=== PATIENT | male | born 1990 | race Caucasian/White ===

== ENCOUNTER 2016-09-06 10:18 | Emergency (ER) | payer BC ==
--- NOTE | 2016-09-06 11:06 | ED ---
Upper Extremity HPI - General Chief Complaint: Extremity Injury, Upper Stated Complaint: left hand pain Time Seen by Provider: 09/06/16 10:37 Source: patient, RN notes reviewed Mode of arrival: ambulatory Limitations: no limitations - History of Present Illness Initial Comments: 26-year-old male presents to the emergency Department chief complaint of left hand pain. Patient states he will running a chest x-ray the fifth and fourth finger on his left hand. Patient states there is no falls traumas or injuries to the hand. Patient does admit to history of arthritis in the past but no other health history. Patient states the shooting tender pains without that he should be reevaluated. Patient states is not currently having any other symptoms at this time. Patient denies any recent fever, chills, shortness of breath, chest pain, back pain, abdominal pain, nausea vomiting, numbness or tingling, dysuria or hematuria, constipation or diarrhea, headaches or visual changes, or any other current symptoms. - Related Data Home Medications Medication Instructions Recorded Confirmed Ibuprofen [Advil] 400 mg PO Q6H PRN 09/06/16 09/06/16 Previous Rx's Medication Instructions Recorded Ibuprofen [Motrin] 800 mg PO Q6HR PRN #20 tab 09/06/16 Allergies Allergy/AdvReac Type Severity Reaction Status Date / Time No Known Allergies Allergy Verified 09/06/16 10:43 Review of Systems ROS Statement: Those systems with pertinent positive or pertinent negative responses have been documented in the HPI. ROS Other: All systems not noted in ROS Statement are negative. Past Medical History Past Medical History: Osteoarthritis (OA) History of Any Multi-Drug Resistant Organisms: None Reported Past Surgical History: Orthopedic Surgery, Tonsillectomy Additional Past Surgical History / Comment(s): right knee Past Psychological History: No Psychological Hx Reported Smoking Status: Never smoker Past Alcohol Use History: Occasional Past Drug Use History: None Reported General Exam - General Exam Comments Initial Comments: General: The patient is awake and alert, in no distress, and does not appear acutely ill. Neck: The neck is supple, there is no tenderness. Cardiovascular: There is a regular rate and rhythm. No murmur, rub or gallop is appreciated. Respiratory: Lungs are clear to auscultation, respirations are non-labored, breath sounds are equal. No wheezes, stridor, rales, or rhonchi. Musculoskeletal: Sensation intact with 2+ pulses. The left upper extremity. Full range motion of left wrist and left hand. Patient does have some tenderness palpation along the fifth and fourth metacarpal. No deformity noted. No erythema noted. Neurological: CN II-XII intact, There are no obvious motor or sensory deficits. Coordination appears grossly intact. Speech is normal. Skin: Skin is warm and dry and no rashes or lesions are noted. Psychiatric: Normal mood and affect. Limitations: no limitations Course Vital Signs 09/06/16 10:23 Temperature 98.6 F Pulse Rate 89 Respiratory 18 Rate Blood Pressure 160/94 O2 Sat by Pulse 98 Oximetry Medical Decision Making - Medical Decision Making 26-year-old male presents to the emergency department chief complaint of left hand pain. This time the patient's x-ray was read that does not show any acute process. Distally discussed other etiologies for the patient's pain. We will start him on prescription strength Motrin to help with the pain we did discuss ice the pain. We discussed return parameters and all the patient's questions. He stated he understood all questions have been answered. He will be discharged home. - Radiology Data Radiology results: report reviewed, image reviewed Disposition Clinical Impression: Left hand pain Disposition: HOME SELF-CARE Condition: Stable Instructions: Hand Sprain (ED) Additional Instructions: Please use medication as discussed. Please follow up with family doctor if symptoms have not improved over the next two days. Please return to the emergency room if your symptoms increase or worsen or for any other concerns. Prescriptions: Ibuprofen [Motrin] 800 mg PO Q6HR PRN #20 tab PRN Reason: Pain Referrals: Fernando Brothers MD [Primary Care Provider] - 1-2 days Gavino Masters MD [STAFF PHYSICIAN] - 1-2 days Time of Disposition: 11:27
--- NOTE | 2016-09-06 11:09 | XR ---
EXAMINATION TYPE: XR hand complete LT DATE OF EXAM: 09/06/2016 10:54 AM CLINICAL HISTORY: pain TECHNIQUE: Frontal, lateral and oblique images of the left hand are obtained. COMPARISON: None. FINDINGS: There is no acute fracture/dislocation evident. The joint spaces appear within normal limi ts. The overlying soft tissue appears unremarkable. IMPRESSION: There is no acute fracture or dislocation. ICD 10 NO FRACTURE, INITIAL EVALUATION
[2016-09-06 11:51] VITALS: BP 148/82; PULSE 78; RESP 17; TEMP 98.7
== END 2016-09-06 11:51 | disposition home or self-care (01) ==
LOC: EC 10:18
DX: S63.92XA Sprain of unspecified part of left wrist and hand, initial encounter (principal); M19.90 Unspecified osteoarthritis, unspecified site; X58.XXXA Exposure to other specified factors, initial encounter
CPT/HCPCS: 99283

== ENCOUNTER → 2016-12-28 | Outpatient (CLI) | payer BC ==
--- NOTE | 2016-12-28 12:10 | XR ---
EXAMINATION TYPE: XR chest 2V DATE OF EXAM ORDERED: 12/28/2016 HISTORY: R05 Cough. REFERENCE: None. FINDINGS: The lungs are clear. Pleural spaces are clear. Heart size is normal. IMPRESSION: NORMAL CHEST.
== END | disposition home or self-care (01) ==
LOC: RADXRMAIN 10:53
PROVIDERS: ATTEND Family Medicine
DX: R05 Cough (principal)
CPT/HCPCS: 71020

== ENCOUNTER → 2017-01-26 | Outpatient (CLI) | payer BC ==
[~2017-01-26] MED LIST: REGADENOSON 0.4 MG/5 ML SYRINGE IV ONE
--- NOTE | 2017-01-26 11:05 | NM ---
EXAMINATION TYPE: NM stress Lexiscan cardiolite DATE OF EXAM: 01/26/2017 COMPARISON: NONE HISTORY: Chronic dyspnea. TECHNIQUE: After the intravenous administration of 10.23 mCi Tc 99m Sestamibi - Cardiolite resting S PECT images acquired 45 minutes post injection. The patient received 0.4mg Lexiscan, 26.8 mCi Tc 99m Sestamibi - Stress images obtained [address] injection FINDINGS: There is good uptake of radiopharmaceutical by the left ventricle. There is no fixed defect . There is no convincing inducible ischemic change. Wall motion appears normal and ejection fraction is normal at 57%. IMPRESSION: NO CONVINCING EVIDENCE FOR INDUCIBLE ISCHEMIC CHANGE AT THIS.
--- NOTE | 2017-01-26 15:15 | EST ---
DATE OF SERVICE: 01/26/17 TYPE OF REPORT: Lexiscan Stress Test INDICATIONS: Hypertension. BASELINE HEART RATE: 58 BASELINE BLOOD PRESSURE: 137/88 MAXIMUM HEART RATE: 103 MAXIMUM BLOOD PRESSURE: 181/83 85% MPHR 164 100% MPHR 193 Lexiscan nuclear study was performed. Peak heart rate of 79 was achieved. Maximum blood pressure of 181/53 mm of mercury was noted. Resting EKG shows normal sinus rhythm with normal KS interval and QRS duration and normal ST T waves. No ST segment depression suggestive of ischemia is noted. The results of the nuclear study will follow. [facility]
== END | disposition home or self-care (01) ==
LOC: RADNMMAIN 08:14
PROVIDERS: ATTEND Family Medicine
DX: R06.09 Other forms of dyspnea (principal)
CPT/HCPCS: 93017; 78452; A9500; J2785

== ENCOUNTER 2017-02-01 11:24 | Observation (INO) | payer BC ==
[2017-02-01] MEDS ORDERED: PANTOPRAZOLE 40 MG TABLET PO PRN (13:41)
[2017-02-01] MEDS ORDERED: BECLOMETHASONE DIP 80 MCG/PUFF INHALER INHALATION PRN (13:41)
--- NOTE | 2017-02-01 14:15 | XR ---
EXAMINATION TYPE: XR chest 2V DATE OF EXAM: 02/01/2017 COMPARISON: Prior chest x-ray 12/28/2016 HISTORY: Asthma, hypertension TECHNIQUE: Frontal and lateral views of the chest are obtained. FINDINGS: There is no focal air space opacity, pleural effusion, or pneumothorax seen. The cardiac silhouette size is within normal limits. The osseous structures are intact. IMPRESSION: No acute cardiopulmonary process.
[2017-02-01 14:44] LABS: Basophils % (A) 1 %; CH 31.4; CHCM 35.3; Eosinophils # (A) 0.1 k/uL (0-0.7); Eosinophils % (A) 1 %; HDW 2.75; HGB 15.3 gm/dL (13.0-17.5); Luc # (Auto) 0.11; Luc % (Auto) 2; Lymphocytes # (A) 2.5 k/uL (1.0-4.8); Lymphocytes % (A) 33 %; MCHC 34.8 g/dL (31.0-37.0); MCV 89.2 fL (80.0-100.0); Mean Platelet Volume 6.8; Monocytes # (A) 0.5 k/uL (0-1.0); Monocytes % (A) 7 %; Neutrophils # (A) 4.3 k/uL (1.3-7.7); Neutrophils % (A) 57 %; RBC 4.93 m/uL (4.30-5.90); RDW 11.9 % (11.5-15.5); WBC 7.5 k/uL (3.8-10.6); WBC (Perox) 7.52
[2017-02-01 14:57] LABS: ALT 47 U/L (21-72); AST 22 U/L (17-59); Alkaline Phosphatase 46 U/L (38-126); Anion Gap 9 mmol/L; Blood Urea Nitrogen 13 mg/dL (9-20); Calcium 9.6 mg/dL (8.4-10.2); Carbon Dioxide 29 mmol/L (22-30); Chloride 102 mmol/L (98-107); Glucose 109 mg/dL (74-99); Non-African American GFR(MDRD) >60 (>60 ml/min/1.73 sqM); Potassium 3.8 mmol/L (3.5-5.1); Sodium 140 mmol/L (137-145); Total Bilirubin 0.6 mg/dL (0.2-1.3); Total Protein 6.9 g/dL (6.3-8.2)
[2017-02-01] MEDS: SODIUM CHLORIDE 0.9% 1,000 ML IV SCH (15:25)
[2017-02-01] MEDS ORDERED: ACETAMINOPHEN TAB 500 MG TAB PO PRN (17:48)
[2017-02-01] MEDS ORDERED: FAMOTIDINE 20 MG TAB PO SCH (21:00)
[2017-02-01] MEDS ORDERED: ONDANSETRON 4 MG/2 ML VIAL IVP PRN (21:39)
[2017-02-01] MEDS: HYDROcodone/APAP 5-325MG 1 EACH TAB PO PRN (21:48)
[2017-02-01] MEDS ORDERED: RX INFO: IV CONTRAST WAS GIVEN 1 EACH MISC MISCELLANE PRN (23:36)
--- NOTE | 2017-02-02 01:33 | CT ---
EXAM: CT Head Without and With Intravenous Contrast CLINICAL HISTORY: Reason: severe headache with dizziness TECHNIQUE: Axial computed tomography images of the head/brain without and with intravenous contrast. CTDI is 57.40 mGy and DLP is 1050.30 mGy-cm. This CT exam was performed using one or more of the following dose reduction techniques: automated exposure control, adjustment of the mA and/or kV according to patient size, and/or use of iterative reconstruction technique. COMPARISON: No relevant prior studies available. FINDINGS: Brain: Unremarkable. No hemorrhage. No significant white matter disease. No edema. Normal enhancement. Ventricles: Unremarkable. No ventriculomegaly. Bones/joints: Unremarkable. No acute fracture. Soft tissues: Unremarkable. Sinuses: Unremarkable as visualized. No acute sinusitis. Mastoid air cells: Unremarkable as visualized. No mastoid effusion. IMPRESSION: Normal head/brain CT.
--- NOTE | 2017-02-02 01:36 | CT ---
EXAM: CT Angiography Head With Intravenous Contrast CLINICAL HISTORY: Reason: severe headache with dizziness TECHNIQUE: Axial computed tomographic angiography images of the head with intravenous contrast using CT angiography protocol. CTDI is 48.50 mGy and DLP is 936.50 mGy-cm. This CT exam was performed using one or more of the following dose reduction techniques: automated exposure control, adjustment of the mA and/or kV according to patient size, and/or use of iterative reconstruction technique. MIP reconstructed images were created and reviewed. COMPARISON: No relevant prior studies available. FINDINGS: Right internal carotid artery: No acute findings. Intracranial segment is patent with no significant stenosis. No aneurysm. Right anterior cerebral artery: Unremarkable. No occlusion or significant stenosis. No aneurysm. Right middle cerebral artery: Unremarkable. No occlusion or significant stenosis. No aneurysm. Right posterior cerebral artery: Unremarkable. No occlusion or significant stenosis. No aneurysm. Right vertebral artery: Unremarkable as visualized. Left internal carotid artery: No acute findings. Intracranial segment is patent with no significant stenosis. No aneurysm. Left anterior cerebral artery: Unremarkable. No occlusion or significant stenosis. No aneurysm. Left middle cerebral artery: Unremarkable. No occlusion or significant stenosis. No aneurysm. Left posterior cerebral artery: Unremarkable. No occlusion or significant stenosis. No aneurysm. Left vertebral artery: Unremarkable as visualized. Basilar artery: Unremarkable. No occlusion or significant stenosis. No aneurysm. IMPRESSION: Normal head CTA.
[2017-02-02 07:36] VITALS: BP 152/81; PULSE 66; RESP 16; TEMP 97.8
[2017-02-02] MEDS ORDERED: methylPREDNISolone SOD SUCCI 40 MG/ML 1 ML VIAL IV SCH (08:00)
--- NOTE | 2017-02-02 08:17 | XR ---
EXAMINATION TYPE: XR chest 2V DATE OF EXAM: 02/02/2017 COMPARISON: Prior chest x-ray 02/01/2017 HISTORY: Dyspnea, asthma TECHNIQUE: Frontal and lateral views of the chest are obtained. FINDINGS: There is no focal air space opacity, pleural effusion, or pneumothorax seen. The cardiac silhouette size is within normal limits. The osseous structures are intact. IMPRESSION: No acute cardiopulmonary process.
[2017-02-02] MEDS: SODIUM CHLORIDE 0.9% 1,000 ML IV SCH ×2 (09:25→09:26)
[2017-02-02] MEDS: HYDROcodone/APAP 5-325MG 1 EACH TAB PO PRN (09:30)
--- NOTE | 2017-02-02 14:34 | P.DS ---
Providers Date of admission: 02/01/17 11:31 Expected date of discharge: 02/02/17 Attending physician: Sascha Kapadia Consults: 02/01/17 21:41 Consult Physician Routine Consulting Provider: Patsy Short Consult Reason/Comments: dizziness Do you want consulting provider notified?: Yes 02/01/17 21:45 Consult Physician Routine Consulting Provider: Kevin Angel Consult Reason/Comments: dizziness Do you want consulting provider notified?: Yes 02/02/17 01:40 Consult Physician Routine Consulting Provider: Donaldo Almanzar Consult Reason/Comments: dyspnea Do you want consulting provider notified?: Yes [facility] Course: 26-year-old was a direct admission from Dr. Kapadia's office on the day of admission. Patient reportedly was being seen in the office for chief complaint of feeling dizzy lightheaded. Additionally patient states he has a history of asthma and felt that he was experiencing episodes of shortness of breath. Patient subsequently was advised to be admitted and worked up for the above- mentioned symptoms. Patient had a computed tomography scan of the head with out IV contrast it was a normal study additionally the CTA of the head was normal. Additionally the patient was able to ambulate on the unit on room air with pulse ox sat keeping greater than 95%. Patient denied any shortness of breath when questioning. Over the course of the hospitalization all studies were reviewed patient's symptoms could be followed in the outpatient setting. Patient denied any dizziness or lightheadedness when questioning. Patient did report having a history of migraines. Patient states he uses [id number] Aleve for migraine headaches patient was subsequently felt to be stable and appropriate proceed with a discharge Impression discharge diagnosis History of mild asthma with no evidence of acute exacerbation History of migraines with no evidence of an acute exacerbation Dizziness lightheadedness unclear etiology The above impression and plan of care have been discussed and directed by signing physician. Katya Simmons nurse practitioner acting as scribe for signing physician. Plan - Discharge Summary New Discharge Prescriptions: Continue Omeprazole [PriLOSEC] 20 mg PO AC-BRKFST PRN PRN Reason: STOMACH Beclomethasone Dipropionate [Qvar 80 mcg] 1 puff INHALATION RT-BID PRN PRN Reason: BREATHING Discharge Medication List Beclomethasone Dipropionate [Qvar 80 mcg] 1 puff INHALATION RT-BID PRN 02/01/17 [History] Omeprazole [PriLOSEC] 20 mg PO AC-BRKFST PRN 02/01/17 [History] Follow up Appointment(s)/Referral(s): Patsy Short MD [STAFF PHYSICIAN] - 1 Week ([facility]ctors office will call to set up appointment with the patient) Flavio Lind MD [STAFF PHYSICIAN] - 1 Week (Follow up appointment on February 14 @ 8:45 a.m.) Donaldo Almanzar MD [STAFF PHYSICIAN] - 1 Week (Appointment is February 09 @ 9: 15 a.m.) Sascha Kapadia MD [Primary Care Provider] - 1 Week Discharge Disposition: HOME SELF-CARE
--- NOTE | 2017-04-09 20:37 | HP ---
HISTORY AND PHYSICAL CHIEF COMPLAINT: A 26-year-old, white male, admitted with dizziness. PRESENT ILLNESS: 26-year-old, white male, admitted to the hospital due to asthma with asthma exacerbation due to increasing shortness of breath and dizziness and light headedness. He is admitted. CT scan of the head was ordered and to rule out a stroke as he is being treated with IV steroids also. HOME MEDICATIONS: Please see list. PAST MEDICAL HISTORY: Migraines and asthma and GERD. REVIEW OF SYSTEMS: 14-point review of system negative except for mentioned in HPI. PHYSICAL EXAMINATION: Vital signs appear to be stable. Respiratory rate increased to 25 to 35. Lungs show wheezes. Expiratory and inspiratory wheeze times four. No rales or rhonchi. CARDIOVASCULAR: S1, S2. Neurologic: Tenderness to palpation cervical lumbar muscles, cervical paraspinal muscles. ENT within normal limits. Pupils equal, round, react to light and accommodation. Cranial nerves appear to be intact. ASSESSMENT: 1. Dizziness, lightheadedness of unclear etiology. 2. History of migraines with acute status migrainosus and acute asthma exacerbation. PLAN: At this point, Pulmonary consult. CT scan of the chest ordered. Neurology consult to rule out any significant adherent dangerous reason for admission and then we will discharge him home. Please see further orders. MMODL / IJN: [id number] /
== END 2017-02-02 15:14 | disposition home or self-care (01) ==
LOC: 3OBS 11:31
PROVIDERS: ADMIT Family Medicine; ATTEND Family Medicine
DX: R42 Dizziness and giddiness (principal); J45.909 Unspecified asthma, uncomplicated; G43.909 Migraine, unspecified, not intractable, without status migrainosus; K21.9 Gastro-esophageal reflux disease without esophagitis
CPT/HCPCS: 96361; 96374; 96375; 85379; 84439; 84481; 80053; 85025; 71020 ×2; 70496; 70470; G0378 ×2; G0379; J2920; Q9967; J2405; 93005

== ENCOUNTER → 2017-03-19 | Outpatient (CLI) | payer BC ==
--- NOTE | 2017-03-19 20:49 | MR ---
EXAMINATION TYPE: MR brain wo/w con DATE OF EXAM: 03/19/2017 COMPARISON: NONE HISTORY: Headache, dizziness TECHNIQUE: Multiplanar, multisequence images of the brain and brainstem is performed without and with IV contras t, utilizing 10 mL intravenous Gadavist . FINDINGS: Diffusion weighted images demonstrate no evidence of a recent infarct or other diffusion ab normality. There is no extra-axial fluid collection or significant white matter signal abnormality. The ventricular system and cisternal spaces are normal in size and appearance. The brain volume is age appropriate. Midline structures demonstrate normal morphology. The craniocervical junction appears within normal limits. Post contrast images demonstrate no abnormal enhancement. The dural venous sinuses appear pa tent. The globes are intact. Circumferential mucosal thickening is seen throughout the maxillary sinu ses, right greater than left that is moderate to severe in degree extending into the ethmoid sinuses with near complete opacification. Sphenoid sinus is well aerated although there is circumferential mu cosal thickening is seen of the frontal sinuses. Mastoid air cells are well aerated. No fluid is seen within the middle ear cavity. Focal dural thickening is seen deep to the left frontal sinus mucosal thickening, however no erosion of the inner table is evident to suggest intracranial abscess. IMPRESSION: 1. Extensive polypoid paranasal sinus disease involving the maxillary, ethmoid and left frontal sinus . Adjacent dural thickening deep to the left frontal sinus is likely reactive without intracranial ex tension. Treatment is recommended to avoid potential inner table erosion and intracranial abscess as a complication.
== END | disposition home or self-care (01) ==
LOC: RADMRIMAIN 09:13
PROVIDERS: ATTEND Psychiatry & Neurology Neurology
DX: R51 Headache (principal)
CPT/HCPCS: 70553; A9581

== ENCOUNTER 2019-09-20 20:20 | Emergency (ER) | payer BC ==
[2019-09-20 20:25] VITALS: RESP 18
[2019-09-20] MEDS ORDERED: ACETAMINOPHEN TAB 325 MG TAB PO STA (20:47)
[2019-09-20] MEDS ORDERED: ALBUTEROL INHALER 60 PUFF/8 GM INHALER INHALATION STA (20:49)
--- NOTE | 2019-09-20 21:16 | XR ---
EXAMINATION TYPE: XR chest 1V portable DATE OF EXAM: 09/20/2019 COMPARISON: February 02, 2017 HISTORY: Short of breath TECHNIQUE: FINDINGS: Heart and mediastinum are normal. Lungs are clear. Diaphragm is normal. Bony thorax appears normal. IMPRESSION: Normal chest. No change.
[2019-09-20 22:01] VITALS: BP 145/85; PULSE 102; TEMP 101.1
--- NOTE | 2019-09-20 22:31 | ED ---
URI HPI - General Chief Complaint: Upper Respiratory Infection Stated Complaint: Fever Time Seen by Provider: 09/20/19 20:27 Source: patient Mode of arrival: ambulatory Limitations: no limitations - History of Present Illness Initial Comments: 29-year-old male patient presents to the emergency department today for evaluation of cough, shortness of breath, and fever. Patient states that he developed a cough yesterday initially producing clear sputum. States in the middle the night he developed a fever of 103F. States the cough is dry and persistent today and now he is having shortness of breath. Denies any wheezing. He does have a history of asthma. He does take Symbicort on a daily basis. States he does not have a rescue inhaler. Patient did take Tylenol and Motrin earlier for fever control which did resolve his fever however it returned. Patient states that he was in contact with a friend on 09/12 who was in direct contact with someone who tested positive for COVID-19. States his friend is currently quarantined and has no symptoms. Patient lives at home with his who is not experiencing symptoms. Patient denies any recent rash, chest pain, abdominal pain, nausea, vomiting, diarrhea, constipation, back pain, numbness, tingling, dizziness, weakness, hematuria, dysuria, urinary urgency, urinary frequency, headache, visual changes, or any other complaints. - Related Data Home Medications Medication Instructions Recorded Confirmed Beclomethasone Dipropionate [Qvar 1 puff INHALATION RT-BID PRN 02/01/17 08/06/17 80 mcg] Montelukast [Singulair] 10 mg PO DAILY PRN 08/06/17 08/06/17 amLODIPine [Norvasc] 5 mg PO DAILY 08/06/17 08/06/17 Previous Rx's Medication Instructions Recorded Ciprofloxacin HCl [Cipro] 500 mg PO BID 5 Days #10 tab 08/06/17 HYDROcodone/APAP 5-325MG [Springs 1 tab PO Q6HR PRN #10 tab 08/06/17 5-325] metroNIDAZOLE [Flagyl] 250 mg PO TID 5 Days #15 tab 08/06/17 Allergies Allergy/AdvReac Type Severity Reaction Status Date / Time No Known Allergies Allergy Verified 08/06/17 17:34 Review of Systems ROS Statement: Those systems with pertinent positive or pertinent negative responses have been documented in the HPI. ROS Other: All systems not noted in ROS Statement are negative. Past Medical History Past Medical History: Asthma, Hypertension, Osteoarthritis (OA) History of Any Multi-Drug Resistant Organisms: None Reported Past Surgical History: Adenoidectomy, Orthopedic Surgery, Tonsillectomy Additional Past Surgical History / Comment(s): right knee Past Psychological History: No Psychological Hx Reported Smoking Status: Never smoker Past Alcohol Use History: Rare Past Drug Use History: None Reported - Past Family History Mother Family Medical History: Diabetes Mellitus, Rheumatoid Arthritis (RA) Father Family Medical History: Asthma, COPD, Hypertension General Exam Limitations: no limitations General appearance: alert, in no apparent distress, other (Physical well- developed, well-nourished adult male patient in no acute distress. Vital signs upon presentation are temperature 101.2F, pulse 123, respirations 18, blood pressure 140/81, pulse ox 92% on room air.) Eye exam: Present: normal appearance, PERRL, EOMI. Absent: scleral icterus, conjunctival injection, periorbital swelling ENT exam: Present: normal exam, normal oropharynx, mucous membranes moist, TM's normal bilaterally Neck exam: Present: normal inspection. Absent: tenderness, meningismus, lymphadenopathy Respiratory exam: Present: normal lung sounds bilaterally. Absent: respiratory distress, wheezes, rales, rhonchi, stridor Cardiovascular Exam: Present: normal rhythm, tachycardia, normal heart sounds. Absent: systolic murmur, diastolic murmur, rubs, gallop, clicks GI/Abdominal exam: Present: soft, normal bowel sounds. Absent: distended, tenderness, guarding, rebound, rigid Neurological exam: Present: alert, oriented X3, CN II-XII intact Psychiatric exam: Present: normal affect, normal mood Skin exam: Present: warm, dry, intact, normal color. Absent: rash Course Vital Signs 09/20/19 09/20/19 20:23 22:00 Temperature 101.2 F H 101.1 F H Pulse Rate 123 H 102 H Respiratory 18 18 Rate Blood Pressure 140/81 145/85 O2 Sat by Pulse 92 L 97 Oximetry Medical Decision Making - Medical Decision Making 29-year-old male patient presented to the emergency department today for evaluation of fever, cough, shortness of breath. Patient did have potential exposure to COVID-19. Patient tested negative for strep and influenza at urgent care earlier today. Patient again tested negative for influenza here. Chest xray showed no acute cardiopulmonary process. He was given tylenol and proair inhaler. Upon reevaluation patient reports minimal improvement of symptoms. Vital signs did improve with oxygen saturation now at 97%. He is resting comfortably in bed in no respiratory distress. Able to speak full sentences, no wheezing. I did discuss findings and results with patient. Discussed that his symptoms are consistent with COVID-19. As we currently have a very limited supply of COVID-19 tests we will assume the infection is present and quarantine appropriately. He will be sent home with the inhaler. He is instructed to remain in quarantine for 14 days or until symptoms completely resolve. He is given quarantine instructions for his . He was given strict return parameters and told to maintain low threshold for return if his symptoms worsen. He verbalizes understanding and agrees with this plan. - Lab Data Lab Results 09/20/19 Range/Units 20:45 Influenza Type A RNA Not Detected (Not Detectd) Influenza Type B (PCR) Not Detected (Not Detectd) - Radiology Data Radiology results: report reviewed, image reviewed 4 view x-ray of the chest is obtained. Report was reviewed in its entirety. Impression by Dr. Beck shows normal chest. No change. Disposition Clinical Impression: Suspected 2019 novel coronavirus infection Disposition: HOME SELF-CARE Condition: Good Instructions (If sedation given, give patient instructions): Upper Respiratory Infection (ED), Acute Bronchitis (ED) Additional Instructions: Increase fluids. Rest. We light clothing. Take Tylenol every 6 hours as needed for fever. Use inhaler 2 puffs every 4-6 hours. Return to the emergency department immediately for any new, worsening, or concerning symptoms. Is patient prescribed a controlled substance at d/c from ED?: No Referrals: Sascha Kapadia MD [Primary Care Provider] - 1-2 days Time of Disposition: 22:31
== END 2019-09-20 22:47 | disposition home or self-care (01) ==
LOC: EC 20:20
DX: R50.9 Fever, unspecified (principal); R05 Cough; R06.02 Shortness of breath; Z20.828 Contact with and (suspected) exposure to other viral communicable diseases; J45.909 Unspecified asthma, uncomplicated; I10 Essential (primary) hypertension; Z79.899 Other long term (current) drug therapy
CPT/HCPCS: 71045; 87502; 94640; 99284

== ENCOUNTER → 2020-04-17 | Outpatient (CLI) | payer BC ==
--- NOTE | 2020-04-17 13:37 | CT ---
EXAMINATION TYPE: CT chest wo con DATE OF EXAM: 04/17/2020 COMPARISON: None HISTORY: 29-year-old male R06.0, shortness of breath, Dyspnea, asthma TECHNIQUE: Contiguous axial scanning of the chest without IV contrast. Coronal and sagittal reconstru ctions performed. CT DLP: 432.9 mGycm Automated exposure control for dose reduction was used. FINDINGS: Heart normal size without pericardial effusion. Aorta normal caliber with conventional branching anatomy. Some residual strandy thymic tissue in anterior mediastinum. No thoracic lymphadenopathy by CT size c riteria. No consolidation or pleural effusion. Central airways are clear. There may be mild fatty infiltration of the liver. Visualized upper abdomen otherwise shows no gross abnormal body. No osseous destructive process. IMPRESSION: NO ACUTE PULMONARY PROCESS. NO SPECIFIC ABNORMALITY SEEN. POSSIBLE MILD FATTY INFILTRATION OF THE LIVER.
== END | disposition home or self-care (01) ==
LOC: RADCTMAIN 11:54
PROVIDERS: ATTEND Internal Medicine Pulmonary Disease
DX: J45.909 Unspecified asthma, uncomplicated (principal)
CPT/HCPCS: 71250

== ENCOUNTER 2023-07-05 16:55 | Observation (INO) | payer BC ==
--- NOTE | 2023-07-05 17:00 | ED ---
General Adult HPI - General Source: RN notes reviewed <Gilda Denney - Last Filed: 07/05/23 16:59> <Martin South - Last Filed: 07/05/23 23:31> - General Stated complaint: Chest Tightness,Fever,Sob-sent by Dr Kapadia Time Seen by Provider: 07/05/23 16:59 - History of Present Illness Initial comments: 33-year-old male presents the emergency department some Dr. Kapadia's office with a chief complaint of cough, shortness of breath and altered mental status. (Gilda Denney) 33-year-old male sent in from [facility] for admission for asthma exacerbation and concern for pneumonia. Patient states he's had congestion for the past week or so but over the past 2 days he's had significant cough and dyspnea. (Martin South) - Related Data Home Medications Medication Instructions Recorded Confirmed Beclomethasone Dipropionate [Qvar 1 puff INHALATION RT-BID PRN 02/01/17 08/06/17 80 mcg] Montelukast [Singulair] 10 mg PO DAILY PRN 08/06/17 08/06/17 amLODIPine [Norvasc] 5 mg PO DAILY 08/06/17 08/06/17 Previous Rx's Medication Instructions Recorded Ciprofloxacin HCl [Cipro] 500 mg PO BID 5 Days #10 tab 08/06/17 HYDROcodone/APAP 5-325MG [[place] 1 tab PO Q6HR PRN #10 tab 08/06/17 5-325] metroNIDAZOLE [Flagyl] 250 mg PO TID 5 Days #15 tab 08/06/17 Allergies Allergy/AdvReac Type Severity Reaction Status Date / Time No Known Allergies Allergy Verified 07/05/23 17:08 Review of Systems ROS Other: All systems not noted in ROS Statement are negative. <Gilda Denney - Last Filed: 07/05/23 16:59> ROS Other: All systems not noted in ROS Statement are negative. <Martin South - Last Filed: 07/05/23 23:31> ROS Statement: Those systems with pertinent positive or pertinent negative responses have been documented in the HPI. Past Medical History Past Medical History: Asthma, Hypertension, Osteoarthritis (OA) History of Any Multi-Drug Resistant Organisms: None Reported Past Surgical History: Adenoidectomy, Orthopedic Surgery, Tonsillectomy Additional Past Surgical History / Comment(s): right knee Past Psychological History: No Psychological Hx Reported Past Alcohol Use History: Rare Past Drug Use History: None Reported - Past Family History Mother Family Medical History: Diabetes Mellitus, Rheumatoid Arthritis (RA) Father Family Medical History: Asthma, COPD, Hypertension <Gilda Denney - Last Filed: 07/05/23 16:59> General Exam <Gilda Denney - Last Filed: 07/05/23 16:59> General appearance: alert, in no apparent distress Head exam: Present: atraumatic, normocephalic ENT exam: Present: mucous membranes dry Neck exam: Present: normal inspection. Absent: tenderness, meningismus Respiratory exam: Present: respiratory distress, wheezes, accessory muscle use, decreased breath sounds Cardiovascular Exam: Present: regular rate, normal rhythm GI/Abdominal exam: Present: soft. Absent: distended, tenderness Neurological exam: Present: alert, oriented X3 Psychiatric exam: Present: normal affect, normal mood Skin exam: Present: warm, dry, intact <Martin South - Last Filed: 07/05/23 23:31> - General Exam Comments Initial Comments: Visual Physical Exam Vital signs reviewed General: Well-appearing, nontoxic, no acute distress. Head: Normocephalic, atraumatic Eyes: PERRLA, EOMI ENT: Airway patent Chest: Nonlabored breathing Skin: No visual rash, normal skin tone Neuro: Alert and oriented 3 Musculoskeletal: No gross abnormalities (Gilda Denney) Course Vital Signs 07/05/23 07/05/23 07/05/23 17:02 22:40 22:41 Temperature 100.6 F H Pulse Rate 102 H 90 Respiratory 18 18 20 Rate Blood Pressure 153/84 144/92 O2 Sat by Pulse 95 96 Oximetry 07/05/23 07/05/23 23:09 23:15 Temperature Pulse Rate 90 92 Respiratory Rate Blood Pressure O2 Sat by Pulse Oximetry Medical Decision Making <Gilda Denney - Last Filed: 07/05/23 16:59> - Lab Data Result diagrams: 07/05/23 17:35 07/05/23 17:35 <Martin South - Last Filed: 07/05/23 23:31> - Medical Decision Making I performed the quick note portion of this exam, verbal signature Gilda Denney PA-C (Gilda Denney) Was pt. sent in by a medical professional or institution (HARRY Cardoso, AGRICULTURAL EDUCATION PROFESSOR, urgent care, hospital, or penitentiary...) When possible be specific @ Sent in by primary care for admission Did you speak to anyone other than the patient for history (EMS, parent, family, police, friend...)? What history was obtained from this source @ -No Did you review nursing and triage notes (agree or disagree)? Why? @ -I reviewed and agree with nursing and triage notes Were old charts reviewed (outside hosp., previous admission, EMS record, old E KG, old radiological studies, urgent care reports/EKG's, penitentiary records)? Report findings @ -No old charts were reviewed Differential Diagnosis (chest pain, altered mental status, abdominal pain women, abdominal pain men, vaginal bleeding, weakness, fever, dyspnea, syncope, headache, dizziness, GI bleed, back pain, seizure, CVA, palpatations, mental hea lth, musculoskeletal)? @ Differential Dyspnea: Coronary syndrome, arrhythmia, tamponade, asthma, COPD, pulmonary embolism, pneumonia, pneumothorax, pulmonary effusion, anaphylaxis, diabetic ketoacidosis, flailed chest, pulmonary contusion, diaphragmatic rupture, anemia, neuromus cular, this is not meant to be an all-inclusive list. EKG interpreted by me (3pts min.). @ -As above X-rays interpreted by me (1pt min.). @ -[Chest x-ray negative for acute cardiopulmonary disease CT interpreted by me (1pt min.). @ -None done U/S interpreted by me (1pt. min.). @ -None done What testing was considered but not performed or refused? (CT, X-rays, U/S, labs)? Why? @ -None What meds were considered but not given or refused? Why? @ -None Did you discuss the management of the patient with other professionals (professionals i.e. HARRY Cardoso, AGRICULTURAL EDUCATION PROFESSOR, lab, RT, psych nurse, rn social work, roofer metal, teacher, air intelligence officer, binder caser)? Give summary @ -No Was smoking cessation discussed for >3mins.? @ -No Was critical care preformed (if so, how long)? @ -No Were there social determinants of health that impacted care today? How? (Ho melessness, low income, unemployed, alcoholism, drug addiction, transportation, low edu. Level, literacy, decrease access to med. care, long term, rehab)? @ -No Was there de-escalation of care discussed even if they declined (Discuss DNR or withdrawal of care, Hospice)? DNR status @ -No What co-morbidities impacted this encounter? (DM, HTN, Smoking, COPD, CAD, Cancer, CVA, ARF, Chemo, Hep., AIDS, mental health diagnosis, sleep apnea, morbid obesity)? @ -[History of asthma. Was patient admitted / discharged? Hospital course, mention meds given and route, prescriptions, significant lab abnormalities, going to OR and other pertinent info. @ -[33-year-old male with 2 days of cough, dyspnea, sent in by primary for admission for asthma exacerbation and concern for pneumonia. Chest x-ray does not show a large focal infiltrate. Patient has bronchospastic cough and wheezing with diminished air entry bilaterally. He started on steroids, IV fluids, albuterol and Atrovent. He'll be placed in observation for treatment of asthma exacerbation. Viral panel is pending. Undiagnosed new problem with uncertain prognosis? @ -No Drug Therapy requiring intensive monitoring for toxicity (Heparin, Nitro, Insulin, Cardizem)? @ -No Were any procedures done? @ -No Diagnosis/symptom? @ -Asthma exacerbation Acute, or Chronic, or Acute on Chronic? @ -Acute Uncomplicated (without systemic symptoms) or Complicated (systemic symptoms)? @ -default Side effects of treatment? @ -No Exacerbation, Progression, or Severe Exacerbation? @ -No Poses a threat to life or bodily function? How? (Chest pain, [place], [place], pneumonia, PE, COPD, DKA, ARF, appy, cholecystitis, CVA, Diverticulitis, Homicidal, Suicidal, threat to staff... and all critical care pts) @ Yes, respiratory failure, asthma (Martin South) - Lab Data Lab Results 07/05/23 07/05/23 07/05/23 Range/Units 17:35 17:35 22:50 WBC 7.1 (3.8-10.6) k/uL RBC 4.53 (4.30-5.90) m/uL Hgb 14.2 (13.0-17.5) gm/dL Hct 40.5 (39.0-53.0) % MCV 89.3 (80.0-100.0) fL MCH 31.4 (25.0-35.0) pg MCHC 35.1 (31.0-37.0) g/dL RDW 12.4 (11.5-15.5) % Plt Count 211 (150-450) k/uL MPV 7.5 Neutrophils % 68 % Lymphocytes % 14 % Monocytes % 14 % Eosinophils % 0 % Basophils % 1 % Neutrophils # 4.8 (1.3-7.7) k/uL Lymphocytes # 1.0 (1.0-4.8) k/uL Monocytes # 1.0 (0-1.0) k/uL Eosinophils # 0.0 (0-0.7) k/uL Basophils # 0.1 (0-0.2) k/uL Sodium 134 L (137-145) mmol/L Potassium 4.3 (3.5-5.1) mmol/L Chloride 98 (98-107) mmol/L Carbon Dioxide 23 (22-30) mmol/L Anion Gap 13 mmol/L BUN 13 (9-20) mg/dL Creatinine 0.87 (0.66-1.25) mg/dL Est GFR (CKD-EPI)AfAm >90 (>60 ml/min/1.73 sqM) Est GFR (CKD-EPI)NonAf >90 (>60 ml/min/1.73 sqM) Glucose 109 H (74-99) mg/dL Plasma Lactic Acid [place] 0.8 (0.7-2.0) mmol/L Calcium 9.1 (8.4-10.2) mg/dL Total Bilirubin 0.6 (0.2-1.3) mg/dL AST 33 (17-59) U/L ALT 34 (4-49) U/L Alkaline Phosphatase 55 (38-126) U/L Total Protein 7.7 (6.3-8.2) g/dL Albumin 4.5 (3.5-5.0) g/dL Disposition <Gilda Denney - Last Filed: 07/05/23 16:59> Is patient prescribed a controlled substance at d/c from ED?: No Time of Disposition: 23:31 <Martin South - Last Filed: 07/05/23 23:31> Clinical Impression: Asthma with acute exacerbation Disposition: ADMITTED IP TO THIS HOSP Condition: Stable Referrals: Sascha Kapadia MD [Primary Care Provider] - 1-2 days
[2023-07-05 17:50] LABS: Basophils # (A) 0.1 k/uL (0-0.2); Basophils % (A) 1 %; Eosinophils % (A) 0 %; HCT 40.5 % (39.0-53.0); HGB 14.2 gm/dL (13.0-17.5); Lymphocytes % (A) 14 %; MCH 31.4 pg (25.0-35.0); MCHC 35.1 g/dL (31.0-37.0); MCV 89.3 fL (80.0-100.0); Mean Platelet Volume 7.5; Monocytes % (A) 14 %; Neutrophils # (A) 4.8 k/uL (1.3-7.7); Neutrophils % (A) 68 %; Platelet Count 211 k/uL (150-450); RBC 4.53 m/uL (4.30-5.90); RDW 12.4 % (11.5-15.5); WBC 7.1 k/uL (3.8-10.6)
[2023-07-05 18:19] LABS: ALT 34 U/L (4-49); AST 33 U/L (17-59); African American GFR (CKD) >90 (>60 ml/min/1.73 sqM); Albumin 4.5 g/dL (3.5-5.0); Alkaline Phosphatase 55 U/L (38-126); Anion Gap 13 mmol/L; Blood Urea Nitrogen 13 mg/dL (9-20); Calcium 9.1 mg/dL (8.4-10.2); Carbon Dioxide 23 mmol/L (22-30); Chloride 98 mmol/L (98-107); Glucose 109 mg/dL (74-99); Non-African American GFR(CKD) >90 (>60 ml/min/1.73 sqM); Potassium 4.3 mmol/L (3.5-5.1); Sodium 134 mmol/L (137-145); Total Bilirubin 0.6 mg/dL (0.2-1.3); Total Protein 7.7 g/dL (6.3-8.2)
--- NOTE | 2023-07-05 20:10 | XR ---
EXAMINATION TYPE: XR chest 2V DATE OF EXAM: 07/05/2023 5:56 PM CLINICAL INDICATION:Male, 33 years old with history of pneumonia; [facility] COMPARISON: Chest radiographs from 09/20/2019 TECHNIQUE: XR chest 2V Frontal and lateral views of the chest. FINDINGS: Lungs/Pleura: There is no evidence of pleural effusion, focal consolidation, or pneumothorax. Pulmonary vascularity: Unremarkable. Heart/mediastinum: Cardiomediastinal silhouette is unremarkable. Musculoskeletal: No acute osseous pathology. IMPRESSION: No acute cardiopulmonary disease/process.
[2023-07-05] MEDS ORDERED: DEXAMETHASONE SOD PHOSPHATE 10 MG/ML 1 ML VIAL IV STA (22:53)
[2023-07-05] MEDS ORDERED: ALBUTEROL NEBULIZED 2.5 MG/3 ML INHALATION STA (22:53)
[2023-07-05] MEDS: IPRATROPIUM-ALBUTEROL 3 ML NEB INHALATION STA ×2 (23:07→23:54)
[2023-07-05] MEDS ORDERED: NALOXONE 0.4 MG/ML 1 ML VIAL IVP PRN (23:27)
[2023-07-05] MEDS ORDERED: ACETAMINOPHEN TAB 325 MG TAB PO PRN (23:27)
[2023-07-05] MEDS ORDERED: IPRATROPIUM-ALBUTEROL 3 ML NEB INHALATION PRN (23:27)
[2023-07-05] MEDS: SODIUM CHLORIDE 0.9% 1,000 ML IV SCH (23:45)
[2023-07-06] MEDS: AZITHROMYCIN 500 MG TAB PO SCH ×2 (01:43→08:04)
[2023-07-06] MEDS: methylPREDNISolone SOD SUCCI 125 MG/2 ML VIAL IV SCH ×5 (01:43→21:00)
[2023-07-06] MEDS: OSELTAMIVIR 75 MG CAP PO SCH ×2 (08:04→20:59)
[2023-07-06] MEDS: IPRATROPIUM-ALBUTEROL 3 ML NEB INHALATION SCH ×4 (08:35→19:20)
[2023-07-06] MEDS: SODIUM CHLORIDE 0.9% 1,000 ML IV SCH (13:34)
[2023-07-06] MEDS: METOPROLOL TARTRATE 25 MG TAB PO SCH (20:59)
--- NOTE | 2023-07-06 21:41 | HP ---
HISTORY AND PHYSICAL HISTORY OF PRESENT ILLNESS: This is a 33-year-old white male, failed outpatient treatment. He has altered mental status. He is walking funny, [id number], near syncope, altered mental status, shortness of breath, cough, congestion, positive for influenza, failed outpatient treatment, came to the hospital, admitted with hypoxemia, oxygen in the low 90s to high 80s. ALLERGIES: No known drug allergies. REVIEW OF SYSTEMS: A 14-point review of systems as mentioned above, fever, chills, fever 103, cough, congestion, wheezing. PAST MEDICAL HISTORY: Asthma, hypertension, osteoarthritis. SURGERIES: Tonsillectomy, adenoidectomy, orthopedic surgery. FAMILY HISTORY: Mother with diabetes mellitus, rheumatoid arthritis. Father asthma, COPD, hypertension. PHYSICAL EXAMINATION: VITAL SIGNS: T-max 103.6, T now 100.6, pulse 90 to 102, respiratory rate 18 to 20. CARDIOVASCULAR: S1, S2. LUNGS: Transmitted upper sounds. GI: Soft. HEMATOLOGY: Negative for Homans. PSYCH: Poor mood and affect. NEUROLOGIC: Alert and oriented x3. INTEGUMENT: Dry skin turgor, dry mucous membranes. ENT: Nasal congestion. NECK: No gross rigidity. Labs were reviewed. Positive influenza A. ASSESSMENT: Asthma exacerbation, dehydration, altered mental status secondary to dehydration, influenza A, get outpatient treatment, altered mental status secondary to dehydration, influenza, rule out sepsis. PROGNOSIS: Guarded. Please see Maxim carias P. ALEISHA / MARIELOSN: [id number] /
[2023-07-07] MEDS: SODIUM CHLORIDE 0.9% 1,000 ML IV SCH (05:32)
[2023-07-07] MEDS: methylPREDNISolone SOD SUCCI 125 MG/2 ML VIAL IV SCH ×2 (06:42→11:55)
[2023-07-07 07:48] VITALS: BP 135/75; RESP 19; TEMP 97.2
[2023-07-07] MEDS: METOPROLOL TARTRATE 25 MG TAB PO SCH (08:23)
[2023-07-07] MEDS: OSELTAMIVIR 75 MG CAP PO SCH (08:23)
[2023-07-07] MEDS: IPRATROPIUM-ALBUTEROL 3 ML NEB INHALATION SCH ×2 (08:55→12:04)
[2023-07-07] MEDS ORDERED: LOSARTAN 50 MG TAB PO SCH (09:00)
[2023-07-07] MEDS ORDERED: amLODIPine 10 MG TAB PO SCH (09:00)
[2023-07-07 09:05] VITALS: PULSE 68
[2023-07-07] MEDS: AZITHROMYCIN 500 MG TAB PO SCH (10:15)
[2023-07-07] MEDS ORDERED: DOXYCYCLINE 100 MG CAP PO SCH (21:00)
[2023-07-08] MEDS ORDERED: methylPREDNISolone 4 MG TAB TAPER PO SCH (09:00)
== END 2023-07-07 14:47 | disposition home or self-care (01) ==
LOC: EC 16:55 → 6NMEDSUR 23:27
PROVIDERS: ADMIT Family Medicine; ATTEND Family Medicine
DX: J45.901 Unspecified asthma with (acute) exacerbation (principal); E86.0 Dehydration; J10.1 Influenza due to other identified influenza virus with other respiratory manifestations; R09.02 Hypoxemia; I10 Essential (primary) hypertension; M19.90 Unspecified osteoarthritis, unspecified site; Z11.52 Encounter for screening for COVID-19; Z79.51 Long term (current) use of inhaled steroids; Z79.899 Other long term (current) drug therapy; Z98.890 Other specified postprocedural states; Z82.49 Family history of ischemic heart disease and other diseases of the circulatory system; Z83.3 Family history of diabetes mellitus; Z82.61 Family history of arthritis; Z82.5 Family history of asthma and other chronic lower respiratory diseases
CPT/HCPCS: 96376 ×3; 96361 ×2; 96365; 96366; 96375 ×2; 99285; 36415; 94640 ×5; 85379; 80053; 83605; 85025; 87636; 71046; G0378 ×3; J1100; J2930 ×2; J0696 ×2